=== PATIENT | male | born 1965 | race African-American/Black ===

== ENCOUNTER 2022-12-27 22:54 | Emergency (ER) | payer OTHER ==
[~2022-12-27] VITALS: Ht 172.7 cm; Wt 77.3 kg
[2022-12-27 23:11] VITALS: BP 111/54
[2022-12-27] MEDS ORDERED: TAMS-13 PO (23:37)
[2022-12-28 00:38] LABS: APPEARANCE,URINE CLEAR (CLEAR); BILIRUBIN,URINE NEGATIVE (NEGATIVE); GLUCOSE, URINE (UA) NEGATIVE (NEGATIVE); KETONES,URINE NEGATIVE (NEGATIVE); LEUKOCYTE ESTERASE ,URINE NEGATIVE (NEGATIVE); NITRATE,URINE NEGATIVE (NEGATIVE); OCCULT BLOOD,URINE NEGATIVE (NEGATIVE); PH,URINE 6.5 (5.0-8.0); PROTEIN,URINE NEGATIVE (NEGATIVE); SPECIFIC GRAVITIY, URINE 1.015 (1.003-1.030); UROBILINOGEN,URINE <=1.0 mg/dL (<=1.0)
[2022-12-28] MEDS ORDERED: TAMS-13 PO (01:05)
[2022-12-28] MEDS ORDERED: TAMSULOSIN HCL 0.4 MG CAPSULE PO ONE (01:30)
== END 2022-12-28 01:35 | disposition home or self-care (01) ==
LOC: EMS 22:56
DX: N40.0 Benign prostatic hyperplasia without lower urinary tract symptoms (principal); F17.210 Nicotine dependence, cigarettes, uncomplicated; F12.90 Cannabis use, unspecified, uncomplicated
CPT/HCPCS: 81003; 87491; 87591; 99283

== ENCOUNTER 2024-08-03 15:37 | Emergency (ER) | payer OTHER ==
[~2024-08-03] VITALS: Ht 177.8 cm; Wt 75.0 kg
[~2024-08-03 15:37] MED LIST: TAMS0.4C94 PO
[2024-08-03 15:46] VITALS: BP 135/85; PULSE 78; RESP 18; TEMP 98.4; O2SAT 99
[2024-08-03] MEDS ORDERED: ATOR10TA69 PO (15:49)
[2024-08-03] MEDS ORDERED: HYDR25TA PO (15:49)
[2024-08-03] MEDS ORDERED: IBUPROFEN 600 MG TABLET PO ONE (18:30)
[2024-08-03] MEDS: KETOROLAC TROMETHAMINE 30 MG/ML VIAL IM ONE (18:46)
[2024-08-03] MEDS ORDERED: IBUP-1492 PO (21:03)
[2024-08-03] MEDS ORDERED: METH-812 PO (21:03)
== END 2024-08-03 21:32 | disposition home or self-care (01) ==
LOC: EMS 15:37
DX: S13.4XXA Sprain of ligaments of cervical spine, initial encounter (principal); M25.512 Pain in left shoulder; F12.90 Cannabis use, unspecified, uncomplicated; F17.210 Nicotine dependence, cigarettes, uncomplicated; Z79.899 Other long term (current) drug therapy; V43.52XA Car driver injured in collision with other type car in traffic accident, initial encounter; Y93.89 Activity, other specified; Y92.410 Unspecified street and highway as the place of occurrence of the external cause; Y99.0 Civilian activity done for income or pay
CPT/HCPCS: 99285; 72125; 73030; 96372; J1885

== ENCOUNTER 2024-08-08 16:48 | Emergency (ER) | payer OTHER ==
[~2024-08-08] VITALS: Ht 172.7 cm; Wt 72.7 kg
[~2024-08-08 16:48] MED LIST changes: +ATOR10TA69 PO; +HYDR25TA PO; +IBUP-1492 PO; +METH-812 PO
[2024-08-08 16:58] VITALS: BP 112/58; PULSE 64; RESP 20; TEMP 98.7; O2SAT 99
[2024-08-08] MEDS ORDERED: FINA5TAB41 PO (16:58)
[2024-08-08] MEDS ORDERED: IBUP-1492 PO (18:34)
[2024-08-08] MEDS: KETOROLAC TROMETHAMINE 30 MG/ML VIAL IM ONE (18:42)
== END 2024-08-08 19:05 | disposition home or self-care (01) ==
LOC: EMS 16:48
DX: S16.1XXA Strain of muscle, fascia and tendon at neck level, initial encounter (principal); I10 Essential (primary) hypertension; F12.90 Cannabis use, unspecified, uncomplicated; F17.210 Nicotine dependence, cigarettes, uncomplicated; E78.00 Pure hypercholesterolemia, unspecified; Z79.899 Other long term (current) drug therapy; V89.2XXA Person injured in unspecified motor-vehicle accident, traffic, initial encounter; Y93.89 Activity, other specified; Y92.410 Unspecified street and highway as the place of occurrence of the external cause; Y99.0 Civilian activity done for income or pay
CPT/HCPCS: 99283; 96372; J1885

== ENCOUNTER 2024-10-07 09:53 | Emergency (ER) | payer SELFPAY ==
[~2024-10-07] VITALS: Ht 167.6 cm; Wt 65.9 kg
[~2024-10-07 09:53] MED LIST changes: +FINA5TAB41 PO
[2024-10-07 10:02] VITALS: TEMP 98.7
[2024-10-07 10:15] LABS: GLUCOMETER DEV NAME(LOC) ERT.6; GLUCOSE,POINT OF CARE 136 MG/DL (70-110)
[2024-10-07 13:12] VITALS: BP 158/95; PULSE 45; RESP 16; O2SAT 100
== END 2024-10-07 13:42 | disposition home or self-care (01) ==
LOC: EMS 09:55
DX: I10 Essential (primary) hypertension (principal); N40.0 Benign prostatic hyperplasia without lower urinary tract symptoms; F12.90 Cannabis use, unspecified, uncomplicated; F17.210 Nicotine dependence, cigarettes, uncomplicated; E78.00 Pure hypercholesterolemia, unspecified; Z79.899 Other long term (current) drug therapy
CPT/HCPCS: 82962; 99282